=== PATIENT | female | born 1955 | race Caucasian/White ===

== ENCOUNTER 2021-05-09 11:10 | Emergency (ER) | payer MEDICARE ==
[~2021-05-09] VITALS: Ht 170.2 cm; Wt 86.0 kg
[2021-05-09 10:48] VITALS: BP 164/95
[2021-05-09 10:50] VITALS: BP 161/96
[2021-05-09 11:01] VITALS: BP 155/75
[2021-05-09 12:05] VITALS: BP 149/86
[2021-05-09] MEDS ORDERED: TENORMIN25 MG PO (12:22)
[2021-05-09] MEDS ORDERED: PROZAC10 MG PO (12:22)
[2021-05-09 13:01] VITALS: BP 158/89
[2021-05-09 13:01] LABS: HEMATOCRIT 44.8 % (37.0-47.0); HEMOGLOBIN 14.3 g/dl (12.0-16.0); MEAN CELL VOLUME 94.3 fL CALC (80.0-100.0); MEAN CORPUSCULAR HGB 30.1 pG CALC (26.0-32.0); MEAN CORPUSCULAR HGB CONC 31.9 g/dL CAL (32.0-36.0); NEUT# 3.21 thou/uL (2.00-7.15); RED BLOOD COUNT 4.75 mill/uL (4.20-5.60)
[2021-05-09 13:17] LABS: ALBUMIN 3.9 g/dL (3.2-5.0); ALKALINE PHOSPHATASE 69 u/l (38-126); ANION GAP 10 (6-22 (CALC)); BILIRUBIN, TOTAL 0.5 mg/dL (0.0-1.4); BUN 18 mg/dL (8-23); BUN/CREATININE RATIO 26 (12-20 (CALC)); C-REACTIVE PROTEIN 0.5 mg/dL (0-0.9); CARBON DIOXIDE 24 mmol/l (22-30); CHLORIDE 105 mmol/l (95-108); CREATININE 0.7 mg/dL (0.5-1.0); GFR > 60 ML/MIN (>=60 (CALC)); GFR FOR AFR.AMER. > 60 ML/MIN (>=60 (CALC)); POTASSIUM 4.7 mmol/l (3.5-5.1); SGOT/AST 30 u/l (9-36); SODIUM 134 mmol/l (137-146); TOTAL PROTEIN 7.5 g/dL (6.3-8.2)
[2021-05-09] MEDS ORDERED: FLEXERIL5 M1 PO (13:52)
[2021-05-09] MEDS ORDERED: PREDNISONE20 MG PO (13:53)
[2021-05-09 14:27] VITALS: BP 158/89
== END 2021-05-09 14:35 | disposition home or self-care (01) ==
LOC: ED 11:10
PROVIDERS: Nurse Practitioner
DX: M43.6 Torticollis (principal); M19.011 Primary osteoarthritis, right shoulder; M79.18 Myalgia, other site; I10 Essential (primary) hypertension; F41.9 Anxiety disorder, unspecified